=== PATIENT | male | born 1955 | race Caucasian/White ===

== ENCOUNTER 2023-07-01 16:34 | Emergency (ER) | payer MEDICARE, SELFPAY ==
[2023-07-01 16:37] VITALS: BP 120/91; PULSE 83; RESP 20; TEMP 36.8; O2SAT 96; BMI 31.4
--- NOTE | 2023-07-01 16:42 | XR_ITS ---
The [address] [address] Patient Name: JENIFFER MCFADDEN MRN: [id number] date: 1955 Sex: M Assigned Patient Location: ER Current Patient Location: ER Accession/Order Number: [id number] Exam Date: 07/01/2023 16:59 Report Date: 07/01/2023 17:58 At the request of: KRZYSZTOF NAILS Procedure: XR foot RT min 3V EXAM: XR ankle RT min 3V, XR foot RT min 3V HISTORY: right ankle pain, injury COMPARISON: None. TECHNIQUE: 3 views of the right ankle and foot FINDINGS: There is no acute fracture or dislocation. Bimalleolar screw fixation are noted. No hardware complication. Talotibial alignment is appropriate. Talar dome is congruent. Ankle mortise is normal. There is soft tissue swelling of the ankle and foot. There is a process. XR/XR foot RT min 3V IMPRESSION: No acute fracture or dislocation. Electronically authenticated by: RALPH HERNANDEZ Date: 07/01/2023 17:58
--- NOTE | 2023-07-01 16:42 | XR_ITS ---
The [address] [address] Patient Name: JENIFFER MCFADDEN MRN: [id number] date: 1955 Sex: M Assigned Patient Location: ER Current Patient Location: ER Accession/Order Number: [id number] Exam Date: 07/01/2023 16:59 Report Date: 07/01/2023 17:58 At the request of: KRZYSZTOF NAILS Procedure: XR ankle RT min 3V EXAM: XR ankle RT min 3V, XR foot RT min 3V HISTORY: right ankle pain, injury COMPARISON: None. TECHNIQUE: 3 views of the right ankle and foot FINDINGS: There is no acute fracture or dislocation. Bimalleolar screw fixation are noted. No hardware complication. Talotibial alignment is appropriate. Talar dome is congruent. Ankle mortise is normal. There is soft tissue swelling of the ankle and foot. There is a process. XR/XR ankle RT min 3V IMPRESSION: No acute fracture or dislocation. Electronically authenticated by: RALPH HERNANDEZ Date: 07/01/2023 17:58
--- NOTE | 2023-07-01 17:42 | ED.LOWEXI1 ---
HPI - Extremity Injury (Lower) General Chief Complaint: Extremity Injury, Lower Stated Complaint: lower injury Time Seen by Provider: 07/01/23 16:42 Source: patient Mode of arrival: Wheelchair Limitations: no limitations History of Present Illness HPI Narrative: one week ago the patient slid out of his truck and landed awkwardly onto the left foot and heel. He complains of pain to the left heel and has swelling of the left ankle. He is concerned that the heel is broken . He previously had surgery on the left ankle to help repair fractures. Related Data Previous Rx's Medication Instructions Recorded nabumetone 750 mg tablet 750 mg PO BID PRN pain #20 tabs 07/01/23 Allergies Allergy/AdvReac Type Severity Reaction Status Date / Time No Known Drug Allergies Allergy Verified 07/01/23 16:41 Exam Narrative Exam Narrative: Nurses note and vital signs reviewed and patient is not hypoxic. afebrile General: The patient appears well and in no apparent distress. Patient is resting comfortably on cart. GCS = 15. Skin: Warm, dry, no pallor noted. Cardiovascular: normal peripheral perfusion Respiratory: Patient is in no distress, no accessory muscle use, no audible wheezing Musculoskeletal: Tenderness to the right heel and along the 5th metatarsal of the right foot. Normal movement of the toes of the right foot. Right ankle swelling without tenderness or decreased right ankle ROM. 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 Psychiatric: Cooperative Constitutional Vital Signs, click to edit/add: Last Vital Signs Temp 98.3 F 07/01/23 16:37 Pulse 83 07/01/23 16:37 Resp 20 07/01/23 16:37 BP 120/91 07/01/23 16:37 Pulse Ox 96 07/01/23 16:37 O2 Del Method Room Air 07/01/23 16:37 Course Vital Signs Vital signs: Vital Signs Temperature 98.3 F 07/01/23 16:37 Pulse Rate 83 07/01/23 16:37 Respiratory Rate 20 07/01/23 16:37 Blood Pressure 120/91 07/01/23 16:37 Pulse Oximetry 96 07/01/23 16:37 Oxygen Delivery Method Room Air 07/01/23 16:37 Temperature 98.3 F 07/01/23 16:37 Pulse Rate 83 07/01/23 16:37 Respiratory Rate 20 07/01/23 16:37 Blood Pressure 120/91 07/01/23 16:37 Pulse Oximetry 96 07/01/23 16:37 Oxygen Delivery Method Room Air 07/01/23 16:37 MDM - Extremity Injury (Lower) MDM Narrative Medical decision making narrative: Patient sent for xrays of the right foot and ankle. He was given oral Toradol in the ED. No fractures identified. Patient discharged home with prescription for Relafen. Imaging Data xr left foot and left ankle: Attestation: I personally reviewed and interpreted this imaging study as follows: My impression: NAD Radiologist's impression: Patient Name: JENIFFER MCFADDEN MRN: [facility]:[id number] date: 1955 Sex: M Assigned Patient Location: ER Current Patient Location: ER Accession/Order Number: [id number] Exam Date: 07/01/2023 16:59 Report Date: 07/01/2023 17:58 At the request of: KRZYSZTOF NAILS Procedure: XR ankle RT min 3V EXAM: XR ankle RT min 3V, XR foot RT min 3V HISTORY: right ankle pain, injury COMPARISON: None. TECHNIQUE: 3 views of the right ankle and foot FINDINGS: There is no acute fracture or dislocation. Bimalleolar screw fixation are noted. No hardware complication. Talotibial alignment is appropriate. Talar dome is congruent. Ankle mortise is normal. There is soft tissue swelling of the ankle and foot. There is a process. IMPRESSION: No acute fracture or dislocation. Electronically authenticated by: RALPH HERNANDEZ Date: 07/01/2023 17:58 Discharge Plan Discharge Chief Complaint: Extremity Injury, Lower Clinical Impression: Contusion of heel Patient Disposition: Home, Self-Care Time of Disposition Decision: 18:09 Prescriptions / Home Meds: New nabumetone 750 mg tablet 750 mg PO BID PRN (Reason: pain) Qty: 20 0RF Instructions: Foot Contusion (ED) Stand Alone Forms: Portal Instructions Referrals: EUGENIE SEGOVIA [Primary Care Provider] - 1 week
[2023-07-01] MEDS: KETOROLAC TROMETHAMINE 10 MG TABLET PO (17:54)
== END 2023-07-01 18:20 | disposition home or self-care (01) ==
PROVIDERS: Emergency Provider Emergency Medicine; PCP Family Medicine
DX: S90.32XA Contusion of left foot, initial encounter (principal); W22.8XXA Striking against or struck by other objects, initial encounter
CPT/HCPCS: 73610; 73630; 99284